=== PATIENT | female | born 1995 | race African-American/Black ===

== ENCOUNTER 2018-03-07 19:52 | Outpatient (CLI) | payer MEDICAID ==
[2018-03-07 20:55] LABS: APPEARANCE,URINE SLIGHTLY-CLOUDY; BILIRUBIN,URINE NEGATIVE (NEGATIVE); COLOR,URINE YELLOW; GLUCOSE, URINE NEGATIVE (NEGATIVE); KETONES,URINE NEGATIVE (NEGATIVE); LEUKOCYTE ESTERASE,URINE NEGATIVE (NEGATIVE); NITRITE,URINE NEGATIVE (NEGATIVE); PROTEIN,URINE NEGATIVE (NEGATIVE); URINE SPECIFIC GRAVITY 1.023; UROBILINOGEN,URINE NEGATIVE mg/dL (<2.0)
[2018-03-07 21:10] LABS: URINE AMPHETAMINES SCREEN NEGATIVE; URINE BARBITURATES SCREEN NEGATIVE; URINE BENZODIAZEPINES SCREEN NEGATIVE; URINE COCAINE SCREEN NEGATIVE; URINE MARIJUANA (THC) SCREEN NEGATIVE; URINE METHADONE SCREEN NEGATIVE; URINE PHENCYCLIDINE SCREEN NEGATIVE
--- NOTE | 2018-03-07 23:41 | RADIOLOGY REPORT (SQ) ---
EXAM DESCRIPTION: US BIOPHYSICAL PROFILE WITHOUT NON STRESS TEST COMPLETED DATE/TME: 03/07/2018 00:00 CLINICAL HISTORY: 22 years, Female, BPP COMPARISON: None. TECHNIQUE: Biophysical profile performed. FINDINGS: breathin posture and tone: 2 movement: 2 Qualitative amniotic fluid volume: 2, 10.1 cm Total score: 8/8 heart rate: 160 bpm. Presentation: Vertex. IMPRESSION: Biophysical profile score 8/8. 2010 [facility] [employer]- All Rights Reserved
== END 2018-03-07 23:11 | disposition home or self-care (01) ==
LOC: LC 19:52
PROVIDERS: ATTEND Obstetrics & Gynecology
DX: O36.8130 Decreased fetal movements, third trimester, not applicable or unspecified (principal); Z3A.31 31 weeks gestation of pregnancy
CPT/HCPCS: 76819; 80307; 81001

== ENCOUNTER 2018-03-18 11:12 | Outpatient (CLI) | payer MEDICAID ==
--- NOTE | 2018-03-18 13:26 | RADIOLOGY REPORT (SQ) ---
EXAM DESCRIPTION: U/S PROFILE W/O STRESS COMPLETED DATE/TIME: 03/18/2018 1:17 pm REASON FOR STUDY: iup 32+6 IUGR eqivocal NST COMPARISON: None. TECHNIQUE: Limited loving-scale realtime and static images of the fetus to measure specified parameter s. LIMITATIONS: None. FINDINGS: HEART RATE: 136 beats per minute. SHAYNE: 8.2 cm. BREATHING MOVEMENT: 0 points. MOVEMENT: 2 points. POSTURE AND TONE: 2 points. QUALITATIVE SHAYNE: 2 points. OTHER: No other significant finding. IMPRESSION: BIOPHYSICAL PROFILE: 12/19. Trimester of : Third - 28 weeks to delivery COMMENT: BREATHING MOVEMENTS: 2 POINTS: PRESENT 0 POINTS: ABSENT MOTION: 2 POINTS: PRESENT 0 POINTS: ABSENT TONE: 2 POINTS: PRESENT 0 POINTS: ABSENT AMNIOTIC FLUID VOLUME: 2 POINTS: LARGEST POCKET GREATER THAN 2 CM DEPTH. 0 POINTS: NO POCKET OF 2 CM. TECHNICAL DOCUMENTATION: JOB ID: [id number] [employer]- All Rights Reserved Reading location - IP/workstation name: [email or web address]
[2018-03-18 14:17] LABS: APPEARANCE,URINE SLIGHTLY-CLOUDY; BILIRUBIN,URINE NEGATIVE (NEGATIVE); COLOR,URINE YELLOW; GLUCOSE, URINE NEGATIVE (NEGATIVE); KETONES,URINE NEGATIVE (NEGATIVE); LEUKOCYTE ESTERASE,URINE TRACE (NEGATIVE); NITRITE,URINE NEGATIVE (NEGATIVE); PROTEIN,URINE NEGATIVE (NEGATIVE); URINE SPECIFIC GRAVITY 1.004; UROBILINOGEN,URINE NEGATIVE mg/dL (<2.0)
[2018-03-18 14:29] LABS: URINE AMPHETAMINES SCREEN NEGATIVE; URINE BARBITURATES SCREEN NEGATIVE; URINE BENZODIAZEPINES SCREEN NEGATIVE; URINE COCAINE SCREEN NEGATIVE; URINE MARIJUANA (THC) SCREEN NEGATIVE; URINE METHADONE SCREEN NEGATIVE; URINE PHENCYCLIDINE SCREEN NEGATIVE
--- NOTE | 2018-03-18 15:04 | Non Stress Test Report ---
Non Stress Test Datetime Report Generated by CPN: 03/18/2018 15:03 DEMOGRAPHIC EGA NST: 32.6 INDICATION Indication for Study: Intrauterine Growth Restriction; Ordered by Provider VITAL SIGNS Temperature - NST: 98.3 Pulse - NST: 93 RESP - NST: 20 NBPSYS NST: 106 NBPDIA NST: 60 MONITORING Monitor Explained: Monitor Explained; Test Explained; Patient Verbalized Understanding Time on Monitor: 03/18/2018 11:27 Time off Monitor: 03/18/2018 14:36 NST Duration: 189 NST INTERVENTIONS NST Interventions: PO Hydration; Reposition Patient Physician Notified NST: K. Ohara CNM BABY A: [id number] BABY A Movement : Present Contraction Frequency : irritability FHR Baseline : 140 Accelerations : 15X15 Decelerations : None Variability : Moderate 6-25bpm NST Review: Meets Criteria for Reactive NST NST Review and Verified By : Marina Hansen RN NST Results: Reactive NST REPORT Report Trigger: Send Report
== END 2018-03-18 14:40 | disposition home or self-care (01) ==
LOC: LC 11:12
PROVIDERS: ATTEND Obstetrics & Gynecology
DX: O36.5930 Maternal care for other known or suspected poor fetal growth, third trimester, not applicable or unspecified (principal); Z3A.32 32 weeks gestation of pregnancy
CPT/HCPCS: 59025; 76819; 80307; 81001

== ENCOUNTER 2018-03-23 16:48 | Outpatient (CLI) | payer MEDICAID ==
[2018-03-23 18:13] LABS: APPEARANCE,URINE SLIGHTLY-CLOUDY; BILIRUBIN,URINE NEGATIVE (NEGATIVE); COLOR,URINE AMBER; GLUCOSE, URINE NEGATIVE (NEGATIVE); KETONES,URINE TRACE mg/dL (NEGATIVE); LEUKOCYTE ESTERASE,URINE TRACE (NEGATIVE); NITRITE,URINE NEGATIVE (NEGATIVE); PROTEIN,URINE NEGATIVE (NEGATIVE); URINE SPECIFIC GRAVITY 1.024
[2018-03-23 18:26] LABS: URINE AMPHETAMINES SCREEN NEGATIVE; URINE BARBITURATES SCREEN NEGATIVE; URINE BENZODIAZEPINES SCREEN NEGATIVE; URINE COCAINE SCREEN NEGATIVE; URINE MARIJUANA (THC) SCREEN NEGATIVE; URINE METHADONE SCREEN NEGATIVE; URINE PHENCYCLIDINE SCREEN NEGATIVE
--- NOTE | 2018-03-23 20:43 | PDOC PROGRESS REPORT ---
Subjective Progress Note for:: 03/23/18 Subjective:: This 22yo G1 with an intrauterine at 33-4/7 weeks, presents to labor and delivery for evaluation after a nonreactive NST in the office. This patient has been under surveillance for possible IUGR. She admits to good movement. Patient states that she has been nauseated for the past few days and has been unable to eat very much. Denies contractions and leakage of fluid. Reason For Visit: NST Physical Exam - Physical Exam Vital Signs: Intake & Output 03/22/18 03/23/18 03/24/18 06:59 06:59 06:59 Weight 57.8 kg General appearance: PRESENT: no acute distress Respiratory exam: PRESENT: clear to auscultation angelic Cardiovascular exam: PRESENT: RRR GI/Abdominal exam: PRESENT: normal bowel sounds, soft. ABSENT: distended, guarding, mass, organolmegaly, rebound, tenderness Result Laboratory Results: 03/23/18 17:00 Urine Color SMOOTH Urine Appearance SLIGHTLY-CLOUDY Urine pH 6.0 Ur Specific Rotan 1.024 Urine Protein NEGATIVE Urine Glucose (UA) NEGATIVE Urine Ketones TRACE H Urine Blood NEGATIVE Urine Nitrite NEGATIVE Ur Leukocyte Esterase TRACE H Urine WBC (Auto) 4 Urine RBC (Auto) 5 Assessment & Plan - Diagnosis (1) Size less than dates Is this a current diagnosis for this admission?: Yes (2) Non-reactive NST (non-stress test) Is this a current diagnosis for this admission?: Yes - Plan Summary Plan Summary: Assessment: 1. Intrauterine at 33-4/7 weeks 2. Reactive NST in office 3. Size less than dates, possible IUGR Plan: 1. Repeat NST--nonreactive until after food intake 2. Discharge home 3. Keep appointment with [facility] tomorrow
--- NOTE | 2018-03-30 11:44 | Non Stress Test Report ---
Non Stress Test Datetime Report Generated by CPN: 03/30/2018 11:44 DEMOGRAPHIC Test Number: 2 EGA NST: 33.4 INDICATION Indication for Study: Ordered by Provider MONITORING Monitor Explained: Monitor Explained; Test Explained; Patient Verbalized Understanding Time on Monitor: 03/23/2018 17:05 Time off Monitor: 03/23/2018 20:32 NST Duration: 207 NST INTERVENTIONS NST Interventions: PO Hydration; Reposition Patient; Vibroacoustic Stim Physician Notified NST: Dr. Younger BABY A: [id number] BABY A Movement : Present Contraction Frequency : none FHR Baseline : 145 Accelerations : 15X15 Decelerations : None Variability : Moderate 6-25bpm NST Review: Meets Criteria for Reactive NST NST Review and Verified By : LUPILLO Logan Results: Reactive NST REPORT Report Trigger: Send Report
--- NOTE | 2018-03-30 13:14 | Non Stress Test Report ---
Non Stress Test Datetime Report Generated by CPN: 03/30/2018 13:14 DEMOGRAPHIC EGA NST: 34.4 INDICATION Indication for Study: Ordered by Provider; Other Indication for Study (NST) Other: Repeat NST MONITORING Monitor Explained: Monitor Explained; Test Explained; Patient Verbalized Understanding Time on Monitor: 03/30/2018 12:24 Time off Monitor: 03/30/2018 13:01 NST Duration: 37 NST INTERVENTIONS NST Interventions: PO Hydration; Reposition Patient Physician Notified NST: Dr. Gene BABY A Movement : Present Contraction Frequency : irritability FHR Baseline : 145 Accelerations : 10X10 Decelerations : None Variability : Moderate 6-25bpm NST Review: Does Not Meet Criteria for Reactive NST NST Review and Verified By : LUPILLO Alfonso Results: Non-Reactive NST COMMENTS NST Comments: Dr. Gene on unit reviewing patient's strip. Order for discharge received NST REPORT Report Trigger: Send Report
== END 2018-03-23 20:36 | disposition home or self-care (01) ==
LOC: LC 16:48
PROVIDERS: ATTEND Obstetrics & Gynecology
PROC: 4A1HXCZ Monitoring of Products of Conception, Cardiac Rate, External Approach (ICD-10-PCS; principal; 2018-03-23)
DX: O36.5930 Maternal care for other known or suspected poor fetal growth, third trimester, not applicable or unspecified (principal); Z3A.33 33 weeks gestation of pregnancy
CPT/HCPCS: 59025; 80307; 81001

== ENCOUNTER 2018-03-30 12:08 | Outpatient (CLI) | payer MEDICAID | END 2018-03-30 13:04 | disposition home or self-care (01) | LOC: LC 12:08 | PROVIDERS: ATTEND Obstetrics & Gynecology | PROC: 4A1HXCZ Monitoring of Products of Conception, Cardiac Rate, External Approach (ICD-10-PCS; principal; 2018-03-30) | DX: Z34.93 Encounter for supervision of normal pregnancy, unspecified, third trimester (principal) | CPT/HCPCS: 59025 ==

== ENCOUNTER 2018-04-06 11:39 | Outpatient (CLI) | payer MEDICAID ==
--- NOTE | 2018-04-06 12:18 | L&D Progress Notes ---
PROGRESS NOTES Datetime Report Generated by CPN: 04/06/2018 12:18 PROGRESS NOTE Comment: NST, reassuring, + accels, moderate variability SIGNATURE SIGNATURE: ,[id number] SIGNATURE: ,[id number] SIGNATURE: ,[id number] SIGNATURE: ,[id number] Assignment: Ana Cooper MD Signature: with User ID: [email or web address] : with User ID: [email or web address]
== END 2018-04-06 12:19 | disposition home or self-care (01) ==
LOC: LC 11:39
PROVIDERS: ATTEND Obstetrics & Gynecology
PROC: 4A1HXCZ Monitoring of Products of Conception, Cardiac Rate, External Approach (ICD-10-PCS; principal; 2018-04-06)
DX: O36.8330 Maternal care for abnormalities of the fetal heart rate or rhythm, third trimester, not applicable or unspecified (principal); Z3A.35 35 weeks gestation of pregnancy
CPT/HCPCS: 59025

== ENCOUNTER 2018-04-09 10:20 | Outpatient (CLI) | payer MEDICAID ==
--- NOTE | 2018-04-09 10:21 | Non Stress Test Report ---
Non Stress Test Datetime Report Generated by CPN: 04/09/2018 10:21 DEMOGRAPHIC EGA NST: 35.4 INDICATION Indication for Study: Ordered by Provider MONITORING Monitor Explained: Monitor Explained; Test Explained; Patient Verbalized Understanding Time on Monitor: 04/06/2018 11:50 Time off Monitor: 04/06/2018 12:16 NST Duration: 26 NST INTERVENTIONS NST Interventions: PO Hydration Physician Notified NST: J. Jensen, CNM BABY A: [id number] BABY A Movement : Present Contraction Frequency : none FHR Baseline : 140 Accelerations : 15X15 Decelerations : None Variability : Moderate 6-25bpm NST Review: Meets Criteria for Reactive NST NST Review and Verified By : Brigida Devine RNC NST Results: Reactive NST COMMENTS NST Comments: nst not done pt released to appt with MFM in [place] NST REPORT Report Trigger: Send Report
--- NOTE | 2018-04-09 12:42 | Non Stress Test Report ---
Non Stress Test Datetime Report Generated by CPN: 04/09/2018 12:42 DEMOGRAPHIC EGA NST: 36.0 INDICATION Indication for Study: Ordered by Provider MONITORING Monitor Explained: Monitor Explained; Test Explained; Patient Verbalized Understanding Time on Monitor: 04/09/2018 11:37 Time off Monitor: 04/09/2018 12:13 NST Duration: 36 NST INTERVENTIONS NST Interventions: PO Hydration; Reposition Patient Physician Notified NST: P. Chan, CNM BABY A Movement : Present Contraction Frequency : none FHR Baseline : 135 Accelerations : 15X15 Decelerations : None Variability : Moderate 6-25bpm NST Review: Meets Criteria for Reactive NST NST Review and Verified By : Marina Hansen RN NST Results: Reactive NST REPORT Report Trigger: Send Report
== END 2018-04-09 12:17 | disposition home or self-care (01) ==
LOC: LC 10:20
PROVIDERS: ATTEND Student in an Organized Health Care Education/Training Program
PROC: 4A1HXCZ Monitoring of Products of Conception, Cardiac Rate, External Approach (ICD-10-PCS; principal; 2018-04-09)
DX: Z34.93 Encounter for supervision of normal pregnancy, unspecified, third trimester (principal)
CPT/HCPCS: 59025

== ENCOUNTER 2018-04-13 12:24 | Outpatient (CLI) | payer MEDICAID ==
[2018-04-13 13:36] LABS: BILIRUBIN,URINE NEGATIVE (NEGATIVE); COLOR,URINE YELLOW; GLUCOSE, URINE NEGATIVE (NEGATIVE); KETONES,URINE NEGATIVE (NEGATIVE); LEUKOCYTE ESTERASE,URINE MODERATE (NEGATIVE); NITRITE,URINE NEGATIVE (NEGATIVE); PROTEIN,URINE NEGATIVE (NEGATIVE); URINE SPECIFIC GRAVITY 1.008; UROBILINOGEN,URINE NEGATIVE mg/dL (<2.0)
[2018-04-13 13:42] LABS: APPEARANCE,URINE SLIGHTLY-CLOUDY
[2018-04-13 14:11] LABS: URINE AMPHETAMINES SCREEN NEGATIVE; URINE BARBITURATES SCREEN NEGATIVE; URINE BENZODIAZEPINES SCREEN NEGATIVE; URINE COCAINE SCREEN NEGATIVE; URINE MARIJUANA (THC) SCREEN NEGATIVE; URINE METHADONE SCREEN NEGATIVE; URINE PHENCYCLIDINE SCREEN NEGATIVE
--- NOTE | 2018-04-13 14:48 | RADIOLOGY REPORT (SQ) ---
EXAM DESCRIPTION: U/S PROFILE W/O STRESS COMPLETED DATE/TIME: 04/13/2018 2:24 pm REASON FOR STUDY: Non Reactive NST at bedside COMPARISON: 03/18/2018. TECHNIQUE: Limited loving-scale realtime and static images of the fetus to measure specified parameter s. LIMITATIONS: None. FINDINGS: HEART RATE: 136 beats per minute. SHAYNE: Adequate volume. BREATHING MOVEMENT: 2 points. MOVEMENT: 2 points. POSTURE AND TONE: 2 points. QUALITATIVE SHAYNE: 2 points. OTHER: JUAN MIGUEL: 36 weeks 4 days. Cephalic presentation. IMPRESSION: BIOPHYSICAL PROFILE: 02/18. Trimester of : Third - 28 weeks to delivery COMMENT: BREATHING MOVEMENTS: 2 POINTS: PRESENT 0 POINTS: ABSENT MOTION: 2 POINTS: PRESENT 0 POINTS: ABSENT TONE: 2 POINTS: PRESENT 0 POINTS: ABSENT AMNIOTIC FLUID VOLUME: 2 POINTS: LARGEST POCKET GREATER THAN 2 CM DEPTH. 0 POINTS: NO POCKET OF 2 CM. TECHNICAL DOCUMENTATION: JOB ID: [id number] [employer]- All Rights Reserved Reading location - IP/workstation name: [email or web address]
== END 2018-04-13 15:29 | disposition home or self-care (01) ==
LOC: LC 12:24
PROVIDERS: ATTEND Obstetrics & Gynecology
PROC: 4A1HXCZ Monitoring of Products of Conception, Cardiac Rate, External Approach (ICD-10-PCS; principal; 2018-04-13)
DX: O47.03 False labor before 37 completed weeks of gestation, third trimester (principal); Z3A.36 36 weeks gestation of pregnancy
CPT/HCPCS: 76819; 80307; 81001

== ENCOUNTER 2018-04-16 15:41 | Outpatient (CLI) | payer MEDICAID ==
--- NOTE | 2018-04-16 17:45 | RADIOLOGY REPORT (SQ) ---
EXAM DESCRIPTION: U/S PROFILE W/O STRESS COMPLETED DATE/TIME: 04/16/2018 5:30 pm REASON FOR STUDY: BPP for nonreactive NST COMPARISON: 04/13/2018 TECHNIQUE: Limited loving-scale realtime and static images of the fetus to measure specified parameter s. LIMITATIONS: None. FINDINGS: HEART RATE: 143 beats per minute. SHAYNE: 4.5 cm. BREATHING MOVEMENT: 2 points. MOVEMENT: 2 points. POSTURE AND TONE: 2 points. QUALITATIVE SHAYNE: 2 points. OTHER: No other significant finding. IMPRESSION: BIOPHYSICAL PROFILE: 02/18. Trimester of : Third - 28 weeks to delivery COMMENT: BREATHING MOVEMENTS: 2 POINTS: PRESENT 0 POINTS: ABSENT MOTION: 2 POINTS: PRESENT 0 POINTS: ABSENT TONE: 2 POINTS: PRESENT 0 POINTS: ABSENT AMNIOTIC FLUID VOLUME: 2 POINTS: LARGEST POCKET GREATER THAN 2 CM DEPTH. 0 POINTS: NO POCKET OF 2 CM. TECHNICAL DOCUMENTATION: JOB ID: [id number] [employer]- All Rights Reserved Reading location - IP/workstation name: [email or web address]
== END 2018-04-16 17:37 | disposition home or self-care (01) ==
LOC: LC 15:41
PROVIDERS: ATTEND Obstetrics & Gynecology Gynecology
PROC: 4A1HXCZ Monitoring of Products of Conception, Cardiac Rate, External Approach (ICD-10-PCS; principal; 2018-04-16)
DX: O36.5930 Maternal care for other known or suspected poor fetal growth, third trimester, not applicable or unspecified (principal); Z3A.37 37 weeks gestation of pregnancy
CPT/HCPCS: 76819

== ENCOUNTER 2018-04-23 22:20 | Outpatient (CLI) | payer MEDICAID ==
[2018-04-23 22:52] LABS: APPEARANCE,URINE CLOUDY; BILIRUBIN,URINE NEGATIVE (NEGATIVE); COLOR,URINE YELLOW; GLUCOSE, URINE NEGATIVE (NEGATIVE); KETONES,URINE NEGATIVE (NEGATIVE); LEUKOCYTE ESTERASE,URINE MODERATE (NEGATIVE); NITRITE,URINE NEGATIVE (NEGATIVE); PROTEIN,URINE NEGATIVE (NEGATIVE); URINE SPECIFIC GRAVITY 1.016; UROBILINOGEN,URINE NEGATIVE mg/dL (<2.0)
[2018-04-23 23:09] LABS: URINE AMPHETAMINES SCREEN NEGATIVE; URINE BARBITURATES SCREEN NEGATIVE; URINE BENZODIAZEPINES SCREEN NEGATIVE; URINE COCAINE SCREEN NEGATIVE; URINE MARIJUANA (THC) SCREEN NEGATIVE; URINE METHADONE SCREEN NEGATIVE; URINE PHENCYCLIDINE SCREEN NEGATIVE
--- NOTE | 2018-04-23 23:17 | Non Stress Test Report ---
Non Stress Test Datetime Report Generated by CPN: 04/23/2018 23:17 DEMOGRAPHIC Test Number: 8 EGA NST: 38.0 EGA NST: 37.0 INDICATION Indication for Study: Decreased Movement; Ordered by Provider Indication for Study: Ordered by Provider URINE RESULTS Urine Protein, NST: Negative Urine Ketones - NST: Negative Urine Glucose - NST: Negative Urine Blood - NST: Negative MONITORING Monitor Explained: Monitor Explained; Test Explained; Patient Verbalized Understanding Monitor Explained: Monitor Explained; Test Explained; Patient Verbalized Understanding Time on Monitor: 04/23/2018 22:33 Time on Monitor: 04/16/2018 15:55 Time off Monitor: 04/23/2018 23:10 Time off Monitor: 04/16/2018 16:55 NST Duration: 37 NST Duration: 60 NST INTERVENTIONS NST Interventions: PO Hydration; Meal Given; Reposition Patient NST Interventions: PO Hydration NST Interventions: PO Hydration; Reposition Patient; For Biophysical Profile Physician Notified NST: Dr. Pimentel Physician Notified NST: Jensen, CNM BABY A: [id number] BABY A Movement : Decreased Movement : Present Movement : Present Contraction Frequency : x1 Contraction Frequency : x3 FHR Baseline : 135 FHR Baseline : 145 Accelerations : 15X15 Accelerations : 15X15 Accelerations : 10X10 Decelerations : None Decelerations : None Decelerations : None Variability : Moderate 6-25bpm Variability : Moderate 6-25bpm Variability : Moderate 6-25bpm NST Review: Meets Criteria for Reactive NST NST Review: Meets Criteria for Reactive NST NST Review: Does Not Meet Criteria for Reactive NST NST Review and Verified By : Sherlyn Campos RN NST Results: Reactive NST Results: Non-Reactive NST COMMENTS NST Comments: BPP 8/8. Pimentel MD given results of BPP and discharged patient home NST REPORT Report Trigger: Send Report
== END 2018-04-23 23:32 | disposition home or self-care (01) ==
LOC: LC 22:20
PROVIDERS: ATTEND Obstetrics & Gynecology Gynecology
PROC: 4A1HXCZ Monitoring of Products of Conception, Cardiac Rate, External Approach (ICD-10-PCS; principal; 2018-04-23)
DX: O36.8130 Decreased fetal movements, third trimester, not applicable or unspecified (principal); Z3A.38 38 weeks gestation of pregnancy
CPT/HCPCS: 59025; 80307; 81005

== ENCOUNTER 2018-04-28 11:22 | Outpatient (CLI) | payer MEDICAID ==
--- NOTE | 2018-04-28 12:18 | Non Stress Test Report ---
Non Stress Test Datetime Report Generated by CPN: 04/28/2018 12:17 DEMOGRAPHIC EGA NST: 38.5 INDICATION Indication for Study: Ordered by Provider MONITORING Monitor Explained: Monitor Explained; Test Explained; Patient Verbalized Understanding Time on Monitor: 04/28/2018 11:33 Time off Monitor: 04/28/2018 12:08 NST Duration: 35 NST INTERVENTIONS NST Interventions: None Physician Notified NST: J. Jensen, CNM BABY A: [id number] BABY A Movement : Present Contraction Frequency : irregular FHR Baseline : 135 Accelerations : 15X15 Decelerations : None Variability : Moderate 6-25bpm NST Review: Meets Criteria for Reactive NST NST Review and Verified By : LUPILLO Portillo Results: Reactive NST REPORT Report Trigger: Send Report
== END 2018-04-28 12:13 | disposition home or self-care (01) ==
LOC: LC 11:22
PROVIDERS: ATTEND Obstetrics & Gynecology
DX: O47.1 False labor at or after 37 completed weeks of gestation (principal); Z3A.38 38 weeks gestation of pregnancy
CPT/HCPCS: 59025

== ENCOUNTER 2018-04-29 17:36 | Inpatient (IN) | payer MEDICAID ==
[2018-04-29] MEDS ORDERED: RINGERS SOLUTION,LACTATED 1,000 ML IV PRN (17:40)
[2018-04-29] MEDS ORDERED: DINOPROSTONE 10 MG VAGINAL INSERT.SR PV PRN (17:40)
[2018-04-29] MEDS ORDERED: RINGERS SOLUTION,LACTATED 1,000 ML IV ONE (17:40)
[2018-04-29] MEDS ORDERED: PENICILLIN G POTASSIUM 5,000,000 UNIT in DEXTROSE 5%-WATER 100 ML IV ONE (18:30)
[2018-04-29 18:32] LABS: ABSOLUTE BASOPHILS # (AUTO) 0.1 10^3/uL (0.0-0.2); ABSOLUTE LYMPHOCYTES (AUTO) 1.8 10^3/uL (0.5-4.7); ABSOLUTE MONOCYTES (AUTO) 0.6 10^3/uL (0.1-1.4); ABSOLUTE NEUT (AUTO) 7.5 10^3/uL (1.7-8.2); EOSINOPHILS % (AUTO) 0.4 % (0-6); HEMATOCRIT 41.5 % (36.0-47.0); HEMOGLOBIN 14.2 g/dL (12.0-15.5); MEAN CORPUSCULAR HEMOGLOBIN 34.6 pg (27.0-33.4); MEAN CORPUSCULAR HGB CONC 34.2 g/dL (32.0-36.0); MEAN CORPUSCULAR VOLUME 101 fl (80-97); PLATELET COUNT 204 10^3/uL (150-450); RED CELL DISTRIBUTION WIDTH 13.8 % (11.5-14.0); SEGMENTED NEUTROPHILS % (AUTO) 74.6 % (42-78); TOTAL CELLS COUNTED % (AUTO) 100 %
[2018-04-29] MEDS ORDERED: PENICILLIN G-K 5 MILLION UNIT VIAL ONE ×2 (18:41→22:54)
[2018-04-29 18:48] LABS: APPEARANCE,URINE SLIGHTLY-CLOUDY; BILIRUBIN,URINE NEGATIVE (NEGATIVE); COLOR,URINE YELLOW; GLUCOSE, URINE NEGATIVE (NEGATIVE); KETONES,URINE TRACE mg/dL (NEGATIVE); LEUKOCYTE ESTERASE,URINE TRACE (NEGATIVE); NITRITE,URINE NEGATIVE (NEGATIVE); PROTEIN,URINE NEGATIVE (NEGATIVE); URINE SPECIFIC GRAVITY 1.013; UROBILINOGEN,URINE NEGATIVE mg/dL (<2.0)
[2018-04-29 18:56] LABS: URINE AMPHETAMINES SCREEN NEGATIVE; URINE BARBITURATES SCREEN NEGATIVE; URINE BENZODIAZEPINES SCREEN NEGATIVE; URINE COCAINE SCREEN NEGATIVE; URINE MARIJUANA (THC) SCREEN NEGATIVE; URINE METHADONE SCREEN NEGATIVE; URINE PHENCYCLIDINE SCREEN NEGATIVE
[2018-04-29] MEDS ORDERED: OXYTOCIN/NORMAL SALINE 20 UNIT/1,000 ML RTUINJ ONE (19:02)
[2018-04-29] MEDS ORDERED: MISOPROSTOL 0.2 MG TABLET ONE (19:02)
[2018-04-29] MEDS ORDERED: LIDOCAINE 1% INJ-PF (10 MG/ML) 30 ML SDV ONE (19:02)
[2018-04-29] MEDS ORDERED: EPHEDRINE SULFATE INJ 50 MG/1 ML AMPULE ONE (19:51)
[2018-04-29] MEDS ORDERED: FENTANYL/BUPIVACAINE/NS/PF 300 MCG/150 ML RTUINJ EPI ONE (19:51)
[2018-04-29] MEDS ORDERED: BUPIVACAINE HCL 0.5 % INJ/PF 30 ML SDV ONE (19:52)
--- NOTE | 2018-04-29 19:53 | Admission Physical ---
Datetime Report Generated by CPN: 04/29/2018 19:53 CURRENT ADMISSION Chief Complaint: Uterine Contractions; Scheduled Induction of Labor Admit Impression : Term, Intrauterine ; Active Labor; Intact Membranes; Induction of Labor Admit Plan: Admit to Unit; Initiate Labor Protocol; Initiate Labor Induction Protocol ALLERGIES Medication Allergies: No Medication Allergies: No Known Allergies (04/29/2018) Latex: No Latex Allergies OBSTETRICAL HISTORY EDC: 05/07/2018 00:00 : 1 Para: 0 Term: 0 : 0 SAB: 0 IAB: 0 Ectopic: 0 Livin Cesareans: 0 VBACs: 0 Multiple Births: 0 Gestational Diabetes: No Rh Sensitization: No Incompetent Cervix: No SUMEET: No Infertility: No ART Treatment: No Uterine Anomaly: No IUGR: No Hx Previous C/S: No Macrosomia: No Hx Loss/Stillborn: No PIH: No Hx : No Placenta Previa/Abruption: No Depression/PP Depression: No PTL/PROM: No Post Hemorrhage: No Current Procedures: Ultrasound; NST Obstetrical History Comments: G1 - Current, IUGR 9% SEE RECORDS Alcohol: No Marijuana : Yes Marijuana Comments: pt states she had edible marijauna a month ago Cocaine: No Other Illicit Drugs: No Cigarettes: Never Smoker. 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 Heart Disease: No Hosp/Surgery: No Autoimmune Disorder: No Anesthetic Complications: No Kidney Disease: No Abnormal Pap Smear: No Neuro/Epilepsy: No Psychiatric Disorders: No Other Medical Diseases: No Hepatitis/Liver Disease: No Significant Family History: No Varicosities/Phlebitis: No Trauma/Violence : No Thyroid Dysfunction: No Medical History Comments: ovarian cysts INFECTIOUS HISTORY Gonorrhea: No Genital Herpes: No Chlamydia: No Tuberculosis: No Syphilis: No Hepatitis: No HIV/AIDS Exposure: No Rash or Viral Illness: No HPV: No PHYSICAL EXAM General: Normal HEENT: Normal Neurologic: Normal Thyroid: Deferred Heart: Normal Lungs: Normal Breast: Deferred Back: Normal Abdomen: Normal Genitourinary Exam: Normal Extremities: Normal DTRs: Normal Pelvic Type: Adequate Vital Signs: Reviewed VAGINAL EXAM Dilatation: 3 Effacement: 90 Station: 0 Contraction Comments: q 2-3 FETUS A EGA: 38.6 Monitoring: External US FHR- Baseline: 145 Variability: Moderate 6-25bpm Accelerations: 15X15 Decelerations: None FHR Category: Category I Presentation: Vertex Admit Comment: 23yo at 38+6ega presents for scheduled IOL due to IUGR. SHe appears to be in early labor. Admit and augment iwth pitocin if needed. GBS positive. Pt desires Epirudal. Seeing MFM IUGR less than 9%. Admit to labor and delivery anticipate . PLANS FOR LABOR AND DELIVERY Labor and Delivery: None Pain Management: Epidural Feeding Preference: Both Benefit of Breast Feed Discussed: Yes Circumcision: N/A INFORMED CONSENT Informed Consent Obtained: Vaginal Delivery; Induction of Labor; Risks, Benefits and Alternatives Discussed Signature: with User ID: [email or web address]
[2018-04-29] MEDS: PENICILLIN G POTASSIUM 2,500,000 UNIT in DEXTROSE 5%-WATER 50 ML IV SCH (23:00)
[2018-04-29] MEDS ORDERED: ACETAMINOPHEN 325 MG TABLET ONE ×2 (23:57)
[2018-04-30] MEDS ORDERED: PENICILLIN G-K 5 MILLION UNIT VIAL ONE (02:44)
[2018-04-30] MEDS: PENICILLIN G POTASSIUM 2,500,000 UNIT in DEXTROSE 5%-WATER 50 ML IV SCH ×2 (02:49→09:41)
[2018-04-30] MEDS ORDERED: ACETAMINOPHEN 325 MG TABLET PO ONE (05:11)
[2018-04-30] MEDS ORDERED: ACETAMINOPHEN 325 MG TABLET ONE (05:12)
[2018-04-30] MEDS ORDERED: GENTAMICIN SULFATE INJ 80 MG/2 ML VIAL ONE (05:27)
[2018-04-30] MEDS ORDERED: AMPICILLIN SOD INJ 2 GM VIAL ONE (05:27)
[2018-04-30] MEDS ORDERED: GENTAMICIN SULFATE INJ 80 MG/2 ML VIAL IV ONE (05:29)
[2018-04-30] MEDS ORDERED: AMPICILLIN SOD INJ 2 GM VIAL IV SCH (05:30)
--- NOTE | 2018-04-30 05:46 | L&D Progress Notes ---
PROGRESS NOTES Datetime Report Generated by CPN: 04/30/2018 05:45 PROGRESS NOTE Impression: Normal Progression of Labor; Reassuring Heart Rate Plan: Antibiotic Therapy Informed Consent Obtained: Risks, Benefits and Alternatives Discussed Informed Consent Obtained: Vaginal Delivery; Induction of Labor; Risks, Benefits and Alternatives Discussed Comment: The fever is likely from neuroaxial anesthesia. We will go ahead and treat with tylenol and change her antibiotics to ampicillin and gentamicin. VAGINAL EXAM Dilatation: 3 Effacement: 90 Station: 0 Contractions: q 2-3 FETUS A Presentation: Vertex SIGNATURE SIGNATURE: 10,[id number];14,[id number];13,[id number] SIGNATURE: 13,[id number];14,[id number];10,[id number] SIGNATURE: 10,[id number];14,[id number] SIGNATURE: 14,[id number];,[id number] SIGNATURE: ,[id number];14,[id number] SIGNATURE: 14,[id number];10,[id number] Signature: with User ID: [email or web address]
[2018-04-30] MEDS ORDERED: GENTAMICIN SULFATE INJ 80 MG/2 ML VIAL IV PRN (05:57)
[2018-04-30] MEDS ORDERED: NA PHOS,M-B/NA PHOS,DI-BA (ADULT) 133 ML ENEMA PR PRN (06:41)
[2018-04-30] MEDS ORDERED: BENZOCAINE/MENTHOL AEROSOL SPRAY 56 ML TOP PRN (06:41)
[2018-04-30] MEDS ORDERED: PSEUDOEPHEDRINE HCL 30 MG TABLET PO PRN (06:41)
[2018-04-30] MEDS ORDERED: MEASLES,MUMPS&RUBELLA VACC/PF 0.5 ML VIAL SUBCUT PRN (06:41)
[2018-04-30] MEDS ORDERED: DIPH/PERTUSS(ACELL)/TETANUS VAC/PF 0.5 ML SYR (>=10YO) IM PRN (06:41)
[2018-04-30] MEDS ORDERED: MAGNESIUM HYDROXIDE SUSP 30 ML UDCUP PO PRN (06:41)
[2018-04-30] MEDS ORDERED: ACETAMINOPHEN WITH CODEINE #3 TABLET PO PRN ×2 (06:41)
[2018-04-30] MEDS ORDERED: PROMETHAZINE HCL INJ 25 MG/1 ML VIAL IV PRN (06:41)
[2018-04-30] MEDS ORDERED: ZOLPIDEM TARTRATE 5 MG TABLET PO PRN (06:41)
[2018-04-30] MEDS ORDERED: ACETAMINOPHEN 650 MG SUPP.RECT PR PRN (06:41)
[2018-04-30] MEDS ORDERED: OXYTOCIN/NORMAL SALINE 20 UNIT/1,000 ML RTUINJ IV PRN (06:41)
[2018-04-30] MEDS ORDERED: DIPHENHYDRAMINE HCL 25 MG CAPSULE PO PRN (06:41)
[2018-04-30] MEDS ORDERED: DIBUCAINE 1% OINTMENT 28 GM TP PRN (06:41)
[2018-04-30] MEDS ORDERED: GLYCERIN/WITCH HAZEL LEAF 1 EACH MED..PAD TP PRN (06:41)
[2018-04-30] MEDS ORDERED: PROMETHAZINE HCL 25 MG TABLET PO PRN (06:41)
[2018-04-30] MEDS ORDERED: PROMETHAZINE HCL 25 MG SUPP.RECT PR PRN (06:41)
--- NOTE | 2018-04-30 08:45 | Delivery Summary ---
Del Sum A-C Datetime Report Generated by CPN: 04/30/2018 08:45 DELIVERY PERSONNEL DELIVERY PERSONNEL: [id number] Delivery Doctor:: Danyelle Garcia MD Labor and Delivery Nurse:: Lizzette Hilton RN Labor and Delivery Nurse:: Tosha Campos RN Nursery Nurse:: Odilia Manriquez RN Nursery Nurse:: Ca Castillo RN Historic Preservationist/JAVA SECURITY ARCHITECT: Sakina Huerta, PRODUCTION ILLUSTRATOR MATERNAL INFORMATION Delivery Anesthesia: Epidural Medications After Delivery: Pitocin Drip 20 Units/1000ml NSS Estimated Blood Loss (ml): 250 Maternal Complications: Maternal Fever LABOR SUMMARY EDC: 05/07/2018 00:00 No. Babies in Womb: 1 Attempted: No Labor Anesthesia: Epidural LABOR INFORMATION Reason for Induction: Not Applicable Onset of Labor: 04/29/2018 22:29 Complete Dilatation: 04/30/2018 06:04 Oxytocin: N/A Group B Beta Strep: Positive Antibiotics # of Doses: 3 Antibiotics Time of Last Dose: 0249 Name of Antibiotic Given: Penicillin Steroids Given: None Reason Steroids Not Administered: Not Applicable MEMBRANES Membranes Rupture Method: Artificial Rupture of Membranes: 04/30/2018 06:19 Length of Rupture (hr): 0.17 Amniotic Fluid Color: Clear Amniotic Fluid Amount: Scant Amniotic Fluid Odor: Normal STAGES OF LABOR Stage 1 hr: 7 Stage 1 min: 35 Stage 2 hr: 0 Stage 2 min: 25 Stage 3 hr: 0 Stage 3 min: 2 Total Time in Labor hr: 8 Total Time in Labor min: 2 VAGINAL DELIVERY Episiotomy: None Laceration #1: None Laceration Extension #1: N/A Laceration #2: None Laceration #3: None Laceration Repair: Not Applicable Laceration Repair Note: No repair needed Sponge Count Correct: N/A; Vaginal Sweep Performed Sharps Count Correct: N/A CSECTION DELIVERY Primary Indication: N/A Secondary Indication: N/A CSection Incidence: N/A Labor: N/A Elective: N/A CSection Incision: N/A BABY A INFORMATION Delivery Date/Time: 04/30/2018 06:29 Method of Delivery: Vaginal Born in Route : No : N/A Forceps: N/A Vacuum Extraction: N/A Shoulder Dystocia : No PRESENTATION/POSITION BABY A Presentation: Cephalic Cephalic Presentation: Vertex Vertex Position: Left Occipital Anterior Breech Presentation: N/A PLACENTA INFORMATION BABY A Placenta Delivery Time : 04/30/2018 06:31 Placenta Method of Delivery: Spontaneous Placenta Status: Delivered SCORES BABY A Heart Rate 1 min: Slow, Below 100 bpm Resp Effort 1 min: Absent Reflex Irritability 1 min: No Response Muscle Tone 1 min: Flaccid Color 1 min: Blue/Pale Resuscitation Effort 1 min: Tactile Stimulation; PPV/NCPAP SCORE 1 MIN: 1 Heart Rate 5 min: >100 bpm Resp Effort 5 min: Good Cry Reflex Irritability 5 min: Cough or Sneeze or Pulls Away Muscle Tone 5 min: Some Flexion of Extremities Color 5 min: Body Manuelito, Extremities Blue Resuscitation Effort 5 min: Tactile Stimulation SCORE 5 MIN: 8 INFANT INFORMATION BABY A Gestational Age at Delivery: 39.0 Gestational Status: Full Term- 39- 40.6 Weeks Outcome : Liveborn Condition : Fair Sex: Female IDENTIFICATION BABY A Infant Verification Date/Time: 04/30/2018 06:59 ID Band Number: [id number] Mother's Name Verified: Yes RN Verifying : C. Mjilin, RN M. Beth, RN WEIGHT/LENGTH BABY A Infant Birthweight (gm): 2465 Weight (lb): 5 Weight (oz): 7 Infant Length (in): 19.75 Length (cm): 50.17 CORD INFORMATION BABY A No. Cord Vessels: 3 Nuchal Cord : Around Neck x1, Tight Cord Blood Taken: Yes-For Storage (Mom's Blood type +) ASSESSMENT BABY A Infant Complications: Multiple Late Decels; Multiple Variable Decels Physical Findings at Delivery: Molding of the Head Physical Findings- Other: tight nuchal cord cut after delivery of the head. Infant Respirations: Intercostal Retractions; Nasal Flaring; Sternal Retractions; Tachypnea Button Facing Machine Operator/ALS Called : No Infant Care By: LUPILLO Toribio RN Transferred To: Nursery BABY B INFORMATION : N/A
[2018-04-30] MEDS ORDERED: IBUPROFEN 800 MG TABLET ONE (08:59)
--- NOTE | 2018-04-30 09:20 | Warning Signs in Babies ---
VOD Warning Signs Datetime Report Generated by [facility]: 04/30/2018 09:20 VOD#608 -Warning Signs in Babies: Needs to be viewed. (03/07/2018 20:06:STEPAN Grier)
[2018-04-30] MEDS: GENTAMICIN SULFATE 90 MG in DEXTROSE 5%-WATER 100 ML IV SCH ×2 (09:39→16:02)
[2018-04-30] MEDS: AMPICILLIN SODIUM 2 GM in NORMAL SALINE 100 ML IV SCH ×3 (09:40→22:03)
[2018-04-30] MEDS: FAMOTIDINE 20 MG TABLET PO SCH ×2 (10:27→22:03)
[2018-04-30] MEDS: SENNOSIDES/DOCUSATE 8.6-50 MG 1 EACH TABLET PO SCH (10:27)
[2018-04-30] MEDS: FERROUS SULFATE 325 MG TABLET PO SCH ×2 (10:27→17:36)
[2018-04-30] MEDS: DOCUSATE SODIUM 100 MG CAPSULE PO SCH ×2 (10:27→17:36)
[2018-04-30] MEDS: PRENATAL VITAMIN W DHA CAPSULE PO SCH (10:27)
[2018-04-30] MEDS: IBUPROFEN 800 MG TABLET PO SCH ×2 (14:51→22:04)
[2018-05-01] MEDS ORDERED: GENTAMICIN SULFATE 90 MG in DEXTROSE 5%-WATER 100 ML IV ONE ×2 (00:15→11:00)
[2018-05-01] MEDS: GENTAMICIN SULFATE 90 MG in DEXTROSE 5%-WATER 100 ML IV SCH (04:43)
[2018-05-01] MEDS: IBUPROFEN 800 MG TABLET PO SCH ×3 (06:01→22:59)
[2018-05-01] MEDS: AMPICILLIN SODIUM 2 GM in NORMAL SALINE 100 ML IV SCH (06:26)
[2018-05-01 07:50] LABS: HEMATOCRIT 36.4 % (36.0-47.0); HEMOGLOBIN 12.3 g/dL (12.0-15.5); MEAN CORPUSCULAR HEMOGLOBIN 34.4 pg (27.0-33.4); MEAN CORPUSCULAR HGB CONC 33.8 g/dL (32.0-36.0); MEAN CORPUSCULAR VOLUME 102 fl (80-97); PLATELET COUNT 168 10^3/uL (150-450); RED BLOOD COUNT 3.58 10^6/uL (3.72-5.28); RED CELL DISTRIBUTION WIDTH 13.6 % (11.5-14.0); WHITE BLOOD COUNT 11.2 10^3/uL (4.0-10.5)
[2018-05-01] MEDS: PRENATAL VITAMIN W DHA CAPSULE PO SCH (09:21)
[2018-05-01] MEDS: SENNOSIDES/DOCUSATE 8.6-50 MG 1 EACH TABLET PO SCH (09:21)
[2018-05-01] MEDS: DOCUSATE SODIUM 100 MG CAPSULE PO SCH ×2 (09:21→18:00)
[2018-05-01] MEDS: FAMOTIDINE 20 MG TABLET PO SCH ×2 (09:21→22:59)
[2018-05-01] MEDS: FERROUS SULFATE 325 MG TABLET PO SCH ×2 (09:21→18:00)
[2018-05-01] MEDS ORDERED: GENTAMICIN SULFATE 90 MG in DEXTROSE 5%-WATER 100 ML IV SCH (10:00)
--- NOTE | 2018-05-01 11:06 | PDOC PROGRESS REPORT ---
Subjective-OB Progress Note for:: 05/01/18 Subjective: tolerating diet, voiding without difficulty, bleeding slowing, pain controlled with current meds, no needs expressed, without difficulty Physical Exam (OB) Vital Signs: Temp Pulse Resp BP Pulse Ox 97.4 F 73 16 112/69 98 05/01/18 07:40 05/01/18 07:40 05/01/18 07:40 05/01/18 07:40 05/01/18 07:40 Intake & Output 04/30/18 05/01/18 05/02/18 06:59 06:59 06:59 Intake Total 1200 1220 Balance 1200 1220 Weight 62.1 kg - Abdomen Description: Soft, Round Hernia Present: No Fundal Description: Firm, Midline Fundal Height: u/u - u/2 - Abdominal Distension: No distension Tenderness: Nontender - Extremities Lower extremities: Ivelisse's sign - neg Calf: Normal, Nontender Objective-Diagnostic Laboratory: 05/01/18 07:28 05/01/18 07:28 WBC 11.2 H RBC 3.58 L Hgb 12.3 Hct 36.4 MCV 102 H MCH 34.4 H MCHC 33.8 RDW 13.6 Plt Count 168 Assessment and Plan(PN) - Assessment and Plan (1) Vaginal delivery Is this a current diagnosis for this admission?: Yes - Time Spent with Patient Time with patient: Less than 15 minutes Medications reviewed and adjusted accordingly: Yes - Disposition Anticipated Discharge: Home Within: within 24 hours
[2018-05-02] MEDS: IBUPROFEN 800 MG TABLET PO SCH (05:22)
--- NOTE | 2018-05-02 10:12 | PDOC DISCHARGE SUMMARY ---
Final Diagnosis Discharge Date: 05/02/18 - Final Diagnosis (1) Vaginal delivery Is this a current diagnosis for this admission?: Yes Discharge Data - Discharge Medication Prescriptions: Ibuprofen [Motrin 800 mg Tablet] 800 mg PO Q8HP PRN #60 tablet PRN Reason: Home Medications: No122/Iron/Folic Acid [ Multi Tablet] 1 tab PO DAILY 03/18/18 Ibuprofen [Motrin 800 mg Tablet] 800 mg PO Q8HP PRN #60 tablet 05/02/18 Procedures: NST Intrapartum Procedure(s): Spontaneous Vaginal Delivery - Diagnosis Test Laboratory: Temp Pulse Resp BP Pulse Ox 98.3 F 79 18 109/63 97 05/02/18 08:21 05/02/18 08:21 05/02/18 08:21 05/02/18 08:21 05/02/18 08:21 04/29/18 04/29/18 05/01/18 17:50 18:13 07:28 RBC 4.10 3.58 L Hgb 14.2 12.3 Hct 41.5 36.4 Urine Opiates Screen NEGATIVE - Discharge information/Instructions Discharge Activity: Balance Activity w/Rest, Pelvic Rest Discharge Diet: Regular Disposition: HOME, SELF-CARE Follow [facility] with: [facility] in: 4, Weeks
[2018-05-02 10:38] VITALS: BP 116/58
[2018-05-02] MEDS: DOCUSATE SODIUM 100 MG CAPSULE PO SCH (10:47)
[2018-05-02] MEDS: SENNOSIDES/DOCUSATE 8.6-50 MG 1 EACH TABLET PO SCH (10:47)
[2018-05-02] MEDS: FAMOTIDINE 20 MG TABLET PO SCH (10:47)
[2018-05-02] MEDS: PRENATAL VITAMIN W DHA CAPSULE PO SCH (10:47)
[2018-05-02] MEDS: FERROUS SULFATE 325 MG TABLET PO SCH (10:47)
== END 2018-05-02 11:44 | disposition home or self-care (01) | DRG 807 ==
LOC: LC 17:36 → LR 17:40 → 2S 04-30 09:21
PROVIDERS: ADMIT Obstetrics & Gynecology; ATTEND Obstetrics & Gynecology
PROC: 10E0XZZ Delivery of Products of Conception, External Approach (ICD-10-PCS; principal; 2018-04-30)
DX: O36.5930 Maternal care for other known or suspected poor fetal growth, third trimester, not applicable or unspecified (principal); Z37.0 Single live birth; O99.824 Streptococcus B carrier state complicating childbirth; O69.1XX0 Labor and delivery complicated by cord around neck, with compression, not applicable or unspecified; O76 Abnormality in fetal heart rate and rhythm complicating labor and delivery; Z3A.38 38 weeks gestation of pregnancy
CPT/HCPCS: 36415; 80307; 81001; 85025; 85027; 86592; 86850; 86900; 86901; J0290; J1580; J2540; J2590; J3010; J3490

== ENCOUNTER 2019-12-28 09:15 | Emergency (ER) | payer MEDICAID, OTHER ==
[2019-12-28 09:21] VITALS: BP 122/83
--- NOTE | 2019-12-28 10:27 | ER Document Report ---
HPI - HPI Time Seen by Provider: 12/28/19 10:18 Pain Level: 4 - ROS Notes: CHIEF COMPLAINT: Chronic low back pain HPI: 24-year-old female with history of chronic low back pain not every day presenting for worsened low back pain today. No dysuria. States she is not . Has taken no medications for her symptoms. No incontinence of urine or bowel. No weakness numbness or tingling in the legs ROS: See HPI - all other systems were reviewed and are otherwise negative Constitutional: no fever GI: no vomiting, no diarrhea, no abdominal pain : no dysuria Integumentary: no rash Allergy: no hives Musculoskeletal: no extremity pain or swelling, positive back pain Neurological: no numbness/tingling, no weakness MEDICATIONS: I agree with the patient medications as charted by the RN. ALLERGIES: I agree with the allergies as charted by the RN. PAST MEDICAL HISTORY/PAST SURGICAL HISTORY: Reviewed and agree as charted by RN. SOCIAL HISTORY: Reviewed and agree as charted by RN. FAMILY HISTORY: No significant familial comorbid conditions directly related to patient complaint EXAM: Reviewed vital signs as charted by RN. CONSTITUTIONAL: Alert and oriented and responds appropriately to questions. Well-appearing; well-nourished HEAD: Normocephalic; atraumatic EYES: Conjunctivae clear, sclerae non-icteric ENT: normal nose; no rhinorrhea; moist mucous membranes NECK: Supple without meningismus; non-tender; no cervical lymphadenopathy, no masses CARD: symmetric distal pulses RESP: Normal chest excursion without splinting or tachypnea ABD/GI: Normal bowel sounds; non-distended; soft, non-tender, no rebound, no guarding; no palpable organomegaly or masses. BACK: The back appears normal and is minimally tender to palpation over the lower lumbar region of the back, there is no CVA tenderness EXT: Normal ROM in all joints; non-tender to palpation; no cyanosis, no effusions, no edema SKIN: Normal color for age and race; warm; dry; good turgor; no acute lesions noted NEURO: Moves all extremities equally; Motor and sensory function intact. Strength equal 5/5 bilateral lower extremities. Sensation intact and equal bilateral lower extremities. Straight leg raise is negative. No saddle anesthesia on exam. DTRs 2+ intact and equal bilateral lower extremities. PSYCH: The patient's mood and manner are appropriate. Grooming and personal hygiene are appropriate. MDM: 24-year-old female with acute on chronic low back pain. Will check urine and urine . She took no medications for her symptoms she is able to ambulate with no difficulty. Low suspicion for cauda equina. If urine negative will treat with Voltaren discharge to follow-up with a PCP - REPRODUCTIVE Reproductive: DENIES: : Past Medical History - Social History Smoking Status: Never Smoker Frequency of alcohol use: None Drug Abuse: None Family History: None Patient has homicidal ideation: No Vertical Provider Document - INFECTION CONTROL TRAVEL OUTSIDE OF THE [place] IN LAST 30 DAYS: No Course - Re-evaluation Re-evalutation: 12/28/19 10:54 Negative for acute findings. Will discharge home - Vital Signs Vital signs: Temp Pulse Resp BP Pulse Ox 98.7 F 87 16 122/83 98 12/28/19 10:09 12/28/19 09:19 12/28/19 09:19 12/28/19 09:19 12/28/19 09:19 Discharge - Discharge Clinical Impression: Acute exacerbation of chronic low back pain Condition: Stable Disposition: HOME, SELF-CARE Additional Instructions: Warm heat to the low back to help with discomfort. Take the Voltaren as prescribed to help with the discomfort. Follow-up with your primary care provider or orthopedic physician for further evaluation and treatment call for appointment Prescriptions: Diclofenac Sodium [Voltaren 50 Mg Tablet.] 50 mg PO BID #20 tablet. Referrals: MAGALI ANDREA MD [ACTIVE STAFF] - Follow up as needed
[2019-12-28 10:52] LABS: APPEARANCE,URINE CLEAR; BILIRUBIN,URINE NEGATIVE (NEGATIVE); COLOR,URINE STRAW; GLUCOSE, URINE NEGATIVE (NEGATIVE); KETONES,URINE NEGATIVE (NEGATIVE); LEUKOCYTE ESTERASE,URINE NEGATIVE (NEGATIVE); NITRITE,URINE NEGATIVE (NEGATIVE); PROTEIN,URINE NEGATIVE (NEGATIVE); URINE SPECIFIC GRAVITY 1.008; UROBILINOGEN,URINE NEGATIVE mg/dL (<2.0)
== END 2019-12-28 10:58 | disposition home or self-care (01) ==
LOC: ER 09:15
DX: G89.29 Other chronic pain (principal); M54.5 Low back pain
CPT/HCPCS: 81001; 81025; 99283